=== PATIENT | female | born 1985 | race Caucasian/White ===

== ENCOUNTER 2020-10-07 05:59 | Inpatient (IN) ==
[2020-10-07] MEDS ORDERED: *HR* FentaNYL (PF) 100 MCG/2 ML VIAL IVP PRN (06:17)
[2020-10-07] MEDS ORDERED: Famotidine 20 MG/2 ML VIAL IVP PRN (06:17)
[2020-10-07] MEDS ORDERED: miSOPROStoL 25 MCG TABLET PO PRN (06:17)
[2020-10-07] MEDS ORDERED: Metoclopramide 10 MG/2 ML VIAL IVP PRN ×2 (06:17→18:51)
[2020-10-07] MEDS ORDERED: *HR* Nalbuphine 10 MG/ML AMPUL IV PRN ×3 (06:17→18:51)
[2020-10-07] MEDS ORDERED: Naloxone 0.4 MG/ML INJ IVP PRN (06:17)
[2020-10-07] MEDS ORDERED: Azithromycin 500 MG in 0.9 % Sodium Chloride 250 ML IVPB PRN (06:17)
[2020-10-07] MEDS ORDERED: Lidocaine 1% 20 ML MDV INFILT PRN (06:17)
[2020-10-07] MEDS ORDERED: Ondansetron 4 MG/2 ML VIAL IVP PRN ×2 (06:17→18:51)
[2020-10-07] MEDS ORDERED: Penicillin G Potassium 5,000,000 UNIT in 0.9 % Sodium Chloride Mini Bag 100 ML IVPB ONE (06:20)
[2020-10-07] MEDS: Ringers Solution, Lactated 1,000 ML IVC SCH ×2 (06:39→12:17)
[2020-10-07 07:12] LABS: Basophils % 0.4 %; Eosinophils # 0.1 K/mcL (0.0-0.6); Eosinophils % 1.4 %; Hematocrit 36.2 % (35.3-44.9); Hemoglobin 11.9 g/dL (11.5-15.4); Immature Granulocytes % 0.7 % (0-4); Lymphocytes # 1.7 K/mcL (0.6-4.6); Lymphocytes % 22.5 %; Mean Corpuscular HGB Conc 32.9 g/dL (31.6-35.5); Mean Corpuscular Hemoglobin 28.5 pg (28.0-33.3); Mean Corpuscular Volume 86.8 fL (83.0-100.0); Mean Platelet Volume 11.5 fL (9.4-12.4); Monocytes # 0.4 K/mcL (0.0-1.3); Monocytes % 5.5 %; Neutrophils # 5.3 K/mcL (1.6-8.9); Platelet Count 246 K/mcL (140-400); Red Blood Count 4.17 M/mcL (3.82-4.97); Red Cell Distribution Width 14.8 % (11.5-14.5); Segmented Neutrophils % 69.5 %; White Blood Count 7.6 K/mcL (4.3-11.1)
[2020-10-07] MEDS ORDERED: EPHEDrine 50 MG/ML VIAL IVP PRN (07:27)
[2020-10-07] MEDS ORDERED: Epidural Premix (fent/bupiv) 110 ML EP SCH (07:30)
[2020-10-07] MEDS ORDERED: Oxytocin 20 units/ LR 1000 mL 20 UNIT/1,000 ML BAG IVC SCH ×3 (08:00→18:51)
[2020-10-07 08:39] LABS: Amphetamine Screen,Urine Negative ng/mL (Cutoff=1000); Barbiturate Screen,Urine Negative ng/mL (Cutoff=200); Benzodiazepines Screen,Urine Negative ng/mL (Cutoff=200); Cannabinoid Screen,Urine Negative ng/mL (Cutoff = 50); Cocaine Screen,Urine Negative ng/mL (Cutoff= 300); Opiate Screen,Urine Negative ng/mL (Cutoff=300); Phencyclidine Screen,Urine Negative ng/mL (Cutoff=25)
[2020-10-07] MEDS ORDERED: Penicillin G Potassium 2,500,000 UNIT/105 ML MLS IVPB SCH (10:30)
[2020-10-07] MEDS ORDERED: Sodium Bicarbonate 50 MEQ/50 ML VIAL ONE (14:12)
[2020-10-07] MEDS ORDERED: Lidocaine/EPI 1:200k 2% PF 20 ML VIAL ONE (14:12)
[2020-10-07] MEDS ORDERED: *HR* Oxytocin 10 UNIT/ML VIAL IM ONE ×2 (14:26→14:54)
[2020-10-07] MEDS ORDERED: Ondansetron 4 MG/2 ML VIAL ONE (14:28)
[2020-10-07] MEDS ORDERED: Ketorolac 30 MG/ML VIAL ONE (14:28)
[2020-10-07] MEDS ORDERED: *HR* FentaNYL (PF) 100 MCG/2 ML VIAL ONE (14:35)
[2020-10-07] MEDS ORDERED: *HR* Morphine Sulfate/PF 10 MG/10 ML AMPUL ONE (14:35)
[2020-10-07] MEDS ORDERED: Ringers Solution, Lactated 1,000 ML ONE (14:40)
[2020-10-07] MEDS ORDERED: *HR* LORazepam 2 MG/ML VIAL ONE (16:30)
[2020-10-07] MEDS ORDERED: Measles/Mumps/Rubella Vacc 0.5 ML VIAL SQ ONE (18:51)
[2020-10-07] MEDS ORDERED: *HR* OxyCODONE Immed Rel 5 MG TABLET PO PRN (18:51)
[2020-10-07] MEDS ORDERED: Simethicone 80 MG TAB.CHEW PO PRN (18:51)
[2020-10-07] MEDS: Ibuprofen 600 MG TABLET PO SCH (19:42)
[2020-10-07] MEDS: Acetaminophen 325 MG TABLET PO SCH (21:38)
[2020-10-07] MEDS: metroNIDAZOLE 500 MG TABLET PO SCH (21:39)
[2020-10-07] MEDS: CeFAZolin 2,000MG/50ML DUPLEX 2,000 MG/50 ML BAG IVPB SCH (21:41)
[2020-10-07] MEDS ORDERED: *HR* LORazepam 2 MG/ML VIAL IVP PRN (22:25)
[2020-10-08] MEDS: Ibuprofen 600 MG TABLET PO SCH ×3 (00:40→13:05)
[2020-10-08] MEDS: Acetaminophen 325 MG TABLET PO SCH ×3 (04:23→14:48)
[2020-10-08] MEDS: CeFAZolin 2,000MG/50ML DUPLEX 2,000 MG/50 ML BAG IVPB SCH (05:50)
[2020-10-08] MEDS: metroNIDAZOLE 500 MG TABLET PO SCH ×2 (08:57→14:48)
[2020-10-08] MEDS ORDERED: Prenatal Vit/FA 1 EACH TABLET PO SCH (09:00)
[2020-10-08] MEDS: cephALEXin 500 MG CAPSULE PO SCH ×2 (10:32→14:48)
[2020-10-08 10:35] LABS: Basophils % 0.1 %; Eosinophils % 0.1 %; Hematocrit 27.8 % (35.3-44.9); Immature Granulocytes % 0.4 % (0-4); Lymphocytes # 1.1 K/mcL (0.6-4.6); Lymphocytes % 9.1 %; Mean Corpuscular HGB Conc 33.5 g/dL (31.6-35.5); Mean Corpuscular Hemoglobin 29.2 pg (28.0-33.3); Mean Corpuscular Volume 87.4 fL (83.0-100.0); Mean Platelet Volume 11.5 fL (9.4-12.4); Monocytes # 0.8 K/mcL (0.0-1.3); Monocytes % 6.6 %; Platelet Count 246 K/mcL (140-400); Red Blood Count 3.18 M/mcL (3.82-4.97); Red Cell Distribution Width 14.9 % (11.5-14.5); Segmented Neutrophils % 83.7 %
[2020-10-08 10:36] LABS: Hemoglobin 9.3 g/dL (11.5-15.4)
[2020-10-08 13:10] VITALS: BP 115/73; PULSE 71; TEMP 98; O2SAT 98
[2020-10-08] MEDS ORDERED: cephALEXin 500 MG CAPSULE PO SCH (21:00)
== END 2020-10-08 16:15 | disposition home or self-care (01) | DRG 540 ==
LOC: 1NENULAB 05:59 → 1NENUOBS 18:35
PROVIDERS: ADMIT Obstetrics & Gynecology; ATTEND Obstetrics & Gynecology